=== PATIENT | male | born 1995 | race Caucasian/White ===

== ENCOUNTER 2017-04-09 14:28 | Emergency (ER) | payer OTHER ==
[2017-04-09 14:32] VITALS: BP 139/88; PULSE 84; RESP 16; TEMP 98; O2SAT 98
--- NOTE | 2017-04-09 14:51 | ED PDOC ---
Lower Extremity Pain/Injury Time Seen by Provider: 04/09/17 14:33 Chief Complaint (Nursing): Lower Extremity Problem/Injury Chief Complaint (Provider): Right Ankle Injury History Per: Patient History/Exam Limitations: no limitations Onset/Duration Of Symptoms: Days Current Symptoms Are (Timing): Still Present Pain Scale Rating Of: 8 Additional Complaint(s): Kizzy Burk, a 21 year old male, is brought into the ED by EMS for an injury to his right ankle. The patient states that yesterday around 1400 he was out playing paint ball and [place] the [place] he struck his foot against a log sustaining injury. - Ankle/Foot Description Of Injury: Struck Against Object - Risk Factors DVT Risk Factors: Pos: None Past Medical History Reviewed: Historical Data, Nursing Documentation, Vital Signs Vital Signs: Last Vital Signs Temp 98.0 F 04/09/17 14:30 Pulse 84 04/09/17 14:30 Resp 16 04/09/17 14:30 BP 139/88 04/09/17 14:30 Pulse Ox 98 04/09/17 14:30 - Medical History PMH: No Chronic Diseases - Surgical History Surgical History: No Surg Hx - Family History Family History: States: Unknown Family Hx - Social History Current smoker - smoking cessation education provided: No Ex-Smoker (has not smoked in the last 12 months): No Alcohol: None Drugs: Denies - Allergies Allergies/Adverse Reactions: Allergies Allergy/AdvReac Type Severity Reaction Status Date / Time No Known Allergies Allergy Verified 04/09/17 14:30 Review of Systems ROS Statement: Except As Marked, All Systems Reviewed And Found Negative Musculoskeletal: Positive for: Other (right ankle injury) Physical Exam - Reviewed Nursing Documentation Reviewed: Yes Vital Signs Reviewed: Yes - Physical Exam Appears: Positive for: Non-toxic, No Acute Distress Head Exam: Positive for: ATRAUMATIC, NORMAL INSPECTION, NORMOCEPHALIC Skin: Positive for: Normal Color, Warm, Dry. Negative for: Rash Eye Exam: Positive for: Normal appearance, EOMI, PERRL. Negative for: Nystagmus Extremity: Positive for: Normal ROM (Full ROM to ankle), Tenderness (Tenderness 1st - 4th metatarsals), Capillary Refill (Capillary refills intact), Other ( Edema to right foot; Ecchymosis mid foot to base of toes; All sensations intact) . Negative for: Calf Tenderness, Deformity, Swelling Neurologic/Psych: Positive for: Alert, Oriented - ECG O2 Sat by Pulse Oximetry: 98 (RA) Pulse Ox Interpretation: Normal Medical Decision Making Medical Decision Makin Initial Impression 21 y/o male presenting with injury to left ankle Initial Plan: * Motrin Tab 600mg PO * RAD RT Foot * Reevaluation No acute fracture or dislocation Scribe Attestation Documented by Kirstie Silverio acting as a scribe for Randi Reyes PA-C. Scribe Attestation All medical record entries made by the Scribe were at my direction and personally dictated by me. I have reviewed the chart and agree that the record accurately reflects my personal performance of the history, physical exam, medical decision making, and the department course for this patient. I have also personally directed, reviewed, and agree with the discharge instructions and disposition. Disposition - Clinical Impression Clinical Impression: Foot contusion - Patient ED Disposition Is Patient to be Admitted: No Counseled Patient/Family Regarding: Diagnosis, Need For Followup - Disposition Referrals: Jose Santana DPM [Staff Provider] - Disposition: Routine/Home Disposition Time: 15:27 Condition: GOOD Additional Instructions: Ice, elevation, Motrin for pain. Instructions: Contusion in Adults (ED) Forms: [employer] (Nepali)
--- NOTE | 2017-04-09 15:59 | RAD ---
PROCEDURE: Right Foot Radiographs. HISTORY: foot pain COMPARISON: None. FINDINGS: BONES: Normal. No fracture. JOINTS: Normal. SOFT TISSUES: Extensive dorsal soft tissue swelling. OTHER FINDINGS: None. IMPRESSION: Extensive dorsal soft tissue swelling.
== END 2017-04-09 16:02 | disposition home or self-care (01) ==
LOC: H.ER 14:28
DX: S90.31XA Contusion of right foot, initial encounter (principal); W22.8XXA Striking against or struck by other objects, initial encounter; Y93.89 Activity, other specified